=== PATIENT | male | born 1995 | race Two or more races ===

== ENCOUNTER 2023-07-15 15:41 | Emergency (ER) | payer OTHER ==
[~2023-07-15] VITALS: Ht 180.3 cm; Wt 113.4 kg
[2023-07-15 16:57] LABS: HEMOGLOBIN 15.5 g/dL (13-16.00); MEAN CELL VOLUME 84.1 fL (80.0-100.00); MEAN CORPUSCULAR HGB CONC 34.4 g/dl (32.0-36.0); PLATELET COUNT 365 K/uL (150-450); RED BLOOD COUNT 5.34 M/uL (4.00-6.00); RED CELL DISTRIBUTION WIDTH 13.4 % (11.5-14.5)
[2023-07-15 17:12] LABS: CALCIUM 9.5 mg/dL (8.5-10.1); CREATININE SERUM 0.9 mg/dL (0.70-1.30); GFR 99.08; POTASSIUM 3.96 mEq/L (3.5-5.1)
== END 2023-07-15 18:52 | disposition home or self-care (01) ==
LOC: ER 15:42
PROVIDERS: General Practice
DX: Z56.6 Other physical and mental strain related to work (principal); Z91.013 Allergy to seafood